=== PATIENT | male | born 1995 | race Caucasian/White ===

== ENCOUNTER 2021-04-08 16:13 | Emergency (ER) | payer OTHER ==
[2021-04-08] MEDS ORDERED: DOXYCYCLINE MO100 MG PO (17:16)
[2021-04-13 17:13] LABS: CHLAMYDIA TRACHOMATIS, NAA Positive (Negative); NEISSERIA GONORRHOEAE, NAA Negative (Negative)
== END 2021-04-08 17:43 | disposition home or self-care (01) ==
LOC: ER1 16:13
PROVIDERS: Nurse Practitioner
DX: A74.9 Chlamydial infection, unspecified (principal); Z20.2 Contact with and (suspected) exposure to infections with a predominantly sexual mode of transmission; Z72.51 High risk heterosexual behavior
CPT/HCPCS: 96372; 99283; J0696